=== PATIENT | female | born 1955 | race Caucasian/White ===

== ENCOUNTER → 2018-04-17 11:05 | Outpatient (CLI) | payer OTHER, SELFPAY ==
--- NOTE | 2018-04-17 | DI.MG.S_ITS ---
BILATERAL DIGITAL SCREENING MAMMOGRAM 3D/2D WITH CAD: 04/17/2018 CLINICAL: Routine screening. Comparison is made to exams dated: 08/02/2015 mammogram, 09/01/2013 mammogram, and 08/24/2012 mammogram - [facility]. The tissue of both breasts is heterogeneously dense. This may lower the sensitivity of mammography. Current study was also evaluated with a Computer Aided Detection (CAD) system. There is an oval equal density asymmetry with a circumscribed margin in the left breast posterior depth superior region seen on the mediolateral oblique view only. No other significant masses, calcifications, or other findings are seen in either breast. IMPRESSION: INCOMPLETE: NEEDS ADDITIONAL IMAGING EVALUATION The oval equal density asymmetry in the left breast is indeterminate. Mediolateral, exaggerated CC, and spot compression views as well as additional views with possible ultrasound are recommended. This exam was interpreted at Station ID: [id number]. NOTE: For mammograms, a report in lay terms will be sent to the patient. Approximately 15% of breast malignancies will not be visualized mammographically. In the management of a palpable breast mass, a negative mammogram must not discourage biopsy of a clinically suspicious lesion. Electronically Signed By: Miller valdez/maddie:04/17/2018 15:28:59 copy to: GRANT PEDROZA letter sent: Additional Imaging Needed ACR BI-RADS Category 0: Incomplete 3340F
== END ==
PROVIDERS: PCP Family Medicine; Visit Provider Family Medicine
DX: Z12.31 Encounter for screening mammogram for malignant neoplasm of breast (principal)
CPT/HCPCS: 77063; 77067

== ENCOUNTER → 2018-05-04 08:50 | Outpatient (CLI) | payer OTHER, SELFPAY ==
--- NOTE | 2018-05-04 | DI.US.S_ITS ---
LIMITED ULTRASOUND OF LEFT BREAST: 05/04/2018 CLINICAL: Patient returns today to evaluate a focal asymmetry in the left breast. Comparison is made to exams dated: 05/04/2018 mammogram, 04/17/2018 mammogram - [facility], 08/02/2015 mammogram, 09/01/2013 mammogram, and 08/24/2012 mammogram - [facility]. Color flow and real-time ultrasound of the left breast outer aspect were performed on the areas of interest. There is a benign 0.8 cm x 0.3 cm x 0.6 cm oval normal lymph node with a circumscribed margin in the left breast at 3 o'clock. This oval normal lymph node is of mixed echogenicity with fatty hilum. This correlates with mammography findings. Color flow imaging demonstrates that there is vascularity present. This appears similar on the CC view of the mammogram compared to the prior study of 09/01/13. IMPRESSION: BENIGN There is no sonographic evidence of malignancy. The 0.8 cm x 0.3 cm x 0.6 cm oval normal lymph node in the left breast is consistent with a lymph node and is benign. A 1 year screening mammogram is recommended. This exam was interpreted at Station ID: [id number]. Electronically Signed By: Miller valdez/:05/04/2018 10:07:42 copy to: GRANT PEDROZA letter sent: Normal Exam Ultrasound BI-RADS: 2 Benign
--- NOTE | 2018-05-04 | DI.MG.S_ITS ---
UNILATERAL LEFT DIGITAL DIAGNOSTIC MAMMOGRAM 3D/2D WITH ADDITIONAL VIEWS: 05/04/2018 CLINICAL: Additional evaluation requested from prior study. Comparison is made to exams dated: 04/17/2018 mammogram - [facility], 08/02/2015 mammogram, and 09/01/2013 mammogram - [facility]. The tissue of left breast is heterogeneously dense. This may lower the sensitivity of mammography. There is 0.9 cm oval equal density focal asymmetry with a circumscribed margin in the left breast at 3 o'clock posterior depth. No other significant masses or calcifications are seen in the breast. IMPRESSION: INCOMPLETE: NEEDS ADDITIONAL IMAGING EVALUATION The 0.9 cm oval equal density focal asymmetry in the left breast is indeterminate. An ultrasound is recommended. This exam was interpreted at Station ID: [id number]. NOTE: For mammograms, a report in lay terms will be sent to the patient. Approximately 15% of breast malignancies will not be visualized mammographically. In the management of a palpable breast mass, a negative mammogram must not discourage biopsy of a clinically suspicious lesion. Electronically Signed By: Miller valdez/maddie:05/04/2018 09:54:18 copy to: GRANT PEDROZA letter sent: Need Ultrasound ACR BI-RADS Category 0: Incomplete [id number]
== END ==
PROVIDERS: PCP Family Medicine; Visit Provider Family Medicine
DX: R92.8 Other abnormal and inconclusive findings on diagnostic imaging of breast (principal)
CPT/HCPCS: 76642; 77065; G0279

== ENCOUNTER → 2018-11-17 09:28 | Outpatient (CLI) | payer OTHER, SELFPAY ==
[2018-11-17 10:30] LABS: Add Manual Diff / Slide Review NO; Basophils Absolute Auto 0 /uL (0-100); Basophils Percent Auto 0.9 % (0-2); Eosinophils Absolute Auto 100 /uL (0-450); Eosinophils Percent Auto 2.8 % (2-4); Hematocrit 41.1 % (36-46); Hemoglobin 14.2 g/dL (12.0-16.0); Lymphocytes Absolute Auto 1500 /uL (1100-4500); Lymphocytes Percent Auto 39.5 % (25-40); Mean Corpuscular HGB Conc 34.6 % (30-36); Mean Corpuscular Hemoglobin 31.2 PG (26-34); Mean Corpuscular Volume 90.2 fL (80-100); Monocytes Absolute Auto 400 /uL (0-900); Monocytes Percent Auto 9.7 % (3-14); Neutrophils Absolute Auto 1800 /uL (1500-7000); Neutrophils Percent Auto 47.1 % (50-75); Platelet Count 268 X10^3/uL (150-400); Red Blood Cell Count 4.56 X10^6/uL (4.0-5.2); Red Cell Distribution Width 13.5 % (11.6-14.8); White Blood Cell Count 3.8 X10^3/uL (4.5-11.0)
[2018-11-17 11:06] LABS: Alanine Aminotransferase 12 IU/L (9-52); Albumin 4.2 g/dL (3.5-5.0); Albumin Globulin Ratio 1.5 (1.0-2.8); Alkaline Phosphatase 64 U/L (38-126); Aspartate Aminotransferase 28 IU/L (14-36); BUN Creatinine Ratio 22.2 (6-22); Bilirubin Total 0.9 mg/dL (0.2-1.3); Blood Urea Nitrogen 20 mg/dL (7-17); Calcium 9.4 mg/dL (8.4-10.2); Carbon Dioxide 29 mmol/L (22-32); Chloride 105 mmol/L (98-107); Cholesterol 216 mg/dL (140-199); Estimated Glomerular Filt Rate > 60.0 mL/min (>60); Globulin 2.8 g/dL (1.7-4.1); Glucose 93 mg/dL (80-110); HDL Cholesterol 76 mg/dL (40-60); HEMOLYSIS < 15 (0-50); LDL Cholesterol Calculated 129 mg/dL (<100); Sodium 141 mmol/L (137-145); Triglycerides 53 mg/dL (35-150)
[2018-11-17 11:25] LABS: Free T3, Triiodothyronine Free 3.55 pg/mL (2.77-5.27); Free T4, Direct Thyroxine 0.89 ng/dL (0.78-2.19)
[2018-11-17 11:38] LABS: Thyroid Stimulating Hormone 2.23 uIU/mL (0.47-4.68)
[2018-11-17 11:40] LABS: Ferritin 85.6 ng/mL (11.1-264)
== END ==
PROVIDERS: Visit Provider Naturopath
DX: Z00.00 Encounter for general adult medical examination without abnormal findings (principal); D50.9 Iron deficiency anemia, unspecified; R53.83 Other fatigue
CPT/HCPCS: 36415; 80053; 80061; 82728; 84439; 84443; 84481; 85025

== ENCOUNTER → 2019-04-08 08:45 | Outpatient (CLI) | payer OTHER, SELFPAY ==
--- NOTE | 2019-04-08 | DI.RAD.S_ITS ---
PROCEDURE: XR CHEST 2V INDICATIONS: COUGH TECHNIQUE: 2 views of the chest were acquired. COMPARISON: None. FINDINGS: Surgical changes and devices: Left clavicle hardware is seen. Lungs and pleura: Lungs are clear. No pleural effusions or pneumothorax. Mediastinum: Mediastinal contours are normal. Heart size is normal. Bones and chest wall: No suspicious bony abnormalities. Age-appropriate bony degenerative changes are seen. Soft tissues appear unremarkable. IMPRESSION: No focal infiltrates are seen. Dictated by: Jeevan Muñoz M.D. on 04/08/2019 at 9:29 Approved by: Jeevan Muñoz M.D. on 04/08/2019 at 9:29
== END ==
PROVIDERS: Referring Provider Student in an Organized Health Care Education/Training Program; Visit Provider Student in an Organized Health Care Education/Training Program
DX: R05 Cough (principal)
CPT/HCPCS: 71046

== ENCOUNTER 2019-11-04 10:35 | Emergency (ER) | payer OTHER, SELFPAY ==
[2019-11-04 10:38] VITALS: BP 110/62; PULSE 49; RESP 13; TEMP 36.7; O2SAT 100; BMI 21.4
--- NOTE | 2019-11-04 10:41 | DI.RAD.S_ITS ---
PROCEDURE: XR TIBIA FUBULA RT 2V INDICATIONS: fell onto right leg TECHNIQUE: 2 views of the tibia and fibula were acquired. COMPARISON: [facility], CR, XR ANKLE RT MIN 3V, 11/04/2019, 10:32. FINDINGS: Bones: Spiral fracture of the proximal fibula. There is minimal displacement. Near anatomic alignment. No dislocations. No suspicious bony lesions. Soft tissues: No suspicious soft tissue calcifications or masses. IMPRESSION: Proximal fibula fracture with minimal displacement. Dictated by: Man Perkins M.D. on 11/04/2019 at 10:00 Approved by: Man Perkins M.D. on 11/04/2019 at 10:02
--- NOTE | 2019-11-04 10:41 | DI.RAD.S_ITS ---
PROCEDURE: XR ANKLE RT MIN 3V INDICATIONS: fell onto right leg TECHNIQUE: 3 views of the ankle were acquired. COMPARISON: [facility], CR, XR TIBIA FIBULA RT 2V, 11/04/2019, 10:32. FINDINGS: Bones: Irregularity at the posterior malleolus seen only on the lateral projection. This is not definitely seen on the tibia fibula radiographs. No dislocations. Ankle mortise is normally aligned. No suspicious bony lesions. Soft tissues: No swelling at the malleoli appreciated. No tibiotalar joint effusion. Achilles tendon appears normal. IMPRESSION: Possible posterior malleolus fracture seen on one view. This may be artifactual, especially if there is no twisting mechanism of the ankle. Recommend correlation for point tenderness. Follow-up radiographs in 10-14 days may be helpful. Dictated by: Man Perkins M.D. on 11/04/2019 at 10:02 Approved by: Man Perkins M.D. on 11/04/2019 at 10:06
--- NOTE | 2019-11-04 11:28 | DI.CT.S_ITS ---
PROCEDURE: CT LE RT WO CON INDICATIONS: Knee to ankle, medial malleolus TECHNIQUE: Noncontrast 3-mm axial sections acquired from the distal tibial shaft to the talar dome, with coronal and sagittal reformats.. COMPARISON: [facility], CR, XR ANKLE RT MIN 3V, 11/04/2019, 10:32. [facility], CR, XR TIBIA FIBULA RT 2V, 11/04/2019, 10:32. FINDINGS: Image quality: Excellent. Bones: There is a mildly displaced spiral fracture involving the proximal fibular diaphysis. Proximal tibia-fibular articulation appears normal. There is a dystrophic calcification at the level just proximal to the syndesmosis without a discrete donor site. Fibula is otherwise intact. There is a nondisplaced, coronal oriented posterior malleolar fracture. A medial malleolar fracture is not seen. The ankle mortise is intact. There is mild spurring along the medial talus. There is a multipartite os navicular, normal variant. Soft tissues: Tendons and musculature appear normal. No significant joint effusions. IMPRESSION: 1. High spiral fibular fracture of the proximal diaphysis suggesting Maisonneuve type fracture. 2. Nondisplaced posterior malleolar fracture. 3. No visible medial malleolar fracture. Osseous contusion may be present. 4. Intact ankle mortise. Dictated by: Gracia Oseguera M.D. on 11/04/2019 at 12:16 Approved by: Gracia Oseguera M.D. on 11/04/2019 at 12:26
[2019-11-04] MEDS: IBUPROFEN 400 MG TABLET PO (12:04)
--- NOTE | 2019-11-04 12:10 | ED_ITS ---
HPI - Extremity Injury (Lower) <PEREZ Jack - Last Filed: 11/04/19 13:58> General Chief Complaint: Extremity Injury, Lower Stated Complaint: fell and injured right leg Time Seen by Provider: 11/04/19 10:58 Source: patient Mode of arrival: Wheelchair Limitations: no limitations History of Present Illness HPI Narrative: 64yo female presents to the ED for right leg pain. She states a few hours ago she slipped on some wet rocks and fell into a sitting position with her right leg cross behind her. Patient states she fell on to her right leg. She reports pain to her right upper lateral side of her leg and her medial ankle. Patient states pain is worse when she tries to ambulate and worse with movement. Patient denies any major medical issues, is not taking any blood thinners. She denies any previous injury to this leg. Patient denies any fevers, chills, nausea, vomiting, diarrhea, chest pain, shortness of breath, or any other concerns. Related Data Allergies Allergy/AdvReac Type Severity Reaction Status Date / Time Penicillins Allergy Verified 11/04/19 10:42 tetracycline Allergy Verified 11/04/19 10:42 Review of Systems <PEREZ Jack - Last Filed: 11/04/19 13:58> Review of Systems Narrative: REVIEW OF SYSTEMS: GENERAL: Denies fever or chills. HENT: No head trauma. CARDIOVASCULAR: No chest pain or syncope. RESPIRATORY: No shortness of breath or cough. GASTROINTESTINAL: No nausea, vomiting, diarrhea, or constipation. . MUSCULOSKELETAL: Complains of R leg pain, see HPI. INTEGUMENTARY: No rash. NEURO: No numbness, tingling. PSYCH: No behavior or mood changes. Patient History <PEREZ Jack - Last Filed: 11/04/19 13:58> Medical History No significant medical problems (Acute) Social History Smoking Status: Unknown if ever smoked Smoking Status: Unknown if ever smoked alcohol intake frequency: holidays/special occasions only Substance Use Type: does not use Exam <PEREZ Jack - Last Filed: 11/04/19 13:58> Initial Vital Signs Initial Vital Signs: Vital Signs Temperature 98.0 F 11/04/19 10:38 Pulse Rate 49 L 11/04/19 10:38 Respiratory Rate 13 11/04/19 10:38 Blood Pressure 110/62 11/04/19 10:38 Pulse Oximetry 100 11/04/19 10:38 PHYSICAL EXAMINATION: GENERAL: Well groomed, alert, and cooperative. Answers questions promptly and appropriately. Vital signs noted. HENT: Normocephalic, atraumatic. EYES: Symmetrical, sclera white, no periorbital swelling. CARDIOVASCULAR: Regular rate. RESPIRATORY: Normal respiratory rate, trachea midline, airway patent. No stridor, nasal flaring or accessory muscle use. MUSCULOSKELETAL: Tenderness to right lateral proximal tibia below knee. Tenderness to right medial malleolus with palpation. No pain to palpation of knee or foot. Small amount of swelling noted to medial malleolus. Decreased range of motion of ankle due to pain. CMS intact, pedal pulses 2+ and equal bilaterally. Patient walks with limp due to pain. Equal tone and mass bilaterally. EXTREMITIES: CMS intact. SKIN: Warm, dry, soft, appropriate color for ethnicity. No lesions, rashes, or wounds. NEURO: Alert and Oriented X 3. No sensory deficits. PSYCH: Appropriate affect and mood. <Mitesh Lambert MD - Last Filed: 11/04/19 18:00> Initial Vital Signs Initial Vital Signs: Vital Signs Temperature 98.0 F 11/04/19 10:38 Pulse Rate 49 L 11/04/19 10:38 Respiratory Rate 13 11/04/19 10:38 Blood Pressure 110/62 11/04/19 10:38 Pulse Oximetry 100 11/04/19 10:38 Course <PEREZ Jack - Last Filed: 11/04/19 13:58> Course Course Narrative: Patient given ibuprofen prior to splinting. CT ordered per request of Ortho. Orders Ordered: ED Orders 11/04/19 10:41 XR ankle RT min 3V Stat XR tibia fibula RT 2V Stat 11/04/19 11:28 CT LE RT wo con Stat Discontinued Medications Ibuprofen (Advil) 400 mg PO NOW ONE Stop: 11/04/19 11:29 Last Admin: 11/04/19 12:04 Dose: 400 mg Documented by: KBROTEM Consultations Consultation #1: [id number]: I spoke with Dr. Rodriguez from ortho who suggested CT of LE, short leg splint, and follow-up in 1 week. Discussed Maisonneuve fracture pattern. Vital Signs Vital signs: Vital Signs - 8 hr 11/04/19 10:38 11/04/19 12:23 Temperature 98.0 F Pulse Rate 49 L 52 L Respiratory Rate 13 16 Blood Pressure 110/62 109/67 Pulse Oximetry 100 97 <Mitesh Lambert MD - Last Filed: 11/04/19 18:00> Orders Ordered: ED Orders 11/04/19 10:41 XR ankle RT min 3V Stat XR tibia fibula RT 2V Stat 11/04/19 11:28 CT LE RT wo con Stat Discontinued Medications Ibuprofen (Advil) 400 mg PO NOW ONE Stop: 11/04/19 11:29 Last Admin: 11/04/19 12:04 Dose: 400 mg Documented by: ISRA Vital Signs Vital signs: Vital Signs - 8 hr 11/04/19 10:38 11/04/19 12:23 Temperature 98.0 F Pulse Rate 49 L 52 L Respiratory Rate 13 16 Blood Pressure 110/62 109/67 Pulse Oximetry 100 97 MDM - Extremity Injury (Lower) <PEREZ Jack - Last Filed: 11/04/19 13:58> Medical Records Attestation: I reviewed the patient's medical records. Lab Data Attestation: I reviewed the patient's lab results. Imaging Data Extremity x-ray #1: Radiologist's Impression: [address] [address] XRay Report Signed Patient: Court Rai GMR#: [id number] : [id number]:[id number] Age/Sex: 64 / FDate of Service: 11/04/19 Loc: ED Accession Number: [id number] Procedure: XR ankle RT min 3V Ordering Provider: Mitesh Lambert MD PROCEDURE: XR ANKLE RT MIN 3V INDICATIONS: fell onto right leg TECHNIQUE: 3 views of the ankle were acquired. COMPARISON: [facility], , XR TIBIA FIBULA RT 2V, 11/04/2019, 10:32. FINDINGS: Bones: Irregularity at the posterior malleolus seen only on the lateral projection. This is not definitely seen on the tibia fibula radiographs. No dislocations. Ankle mortise is normally aligned. No suspicious bony lesions. Soft tissues: No swelling at the malleoli appreciated. No tibiotalar joint effusion. Achilles tendon appears normal. IMPRESSION: Possible posterior malleolus fracture seen on one view. This may be artifactual, especially if there is no twisting mechanism of the ankle. Recommend correlation for point tenderness. Follow-up radiographs in 10-14 days may be helpful. Dictated by: Man Perkins M.D. on 11/04/2019 at 10:02 Approved by: Man Pekrins M.D. on 11/04/2019 at 10:06 Extremity x-ray #2: Radiologist's Impression: [address] [address] XRay Report Signed Patient: Court Rai R#: [id number] : [id number]:[id number] Age/Sex: 64 / FDate of Service: 11/04/19 Loc: ED Accession Number: [id number] Procedure: XR tibia fibula RT 2V Ordering Provider: Mitesh Lambert MD PROCEDURE: XR TIBIA FUBULA RT 2V INDICATIONS: fell onto right leg TECHNIQUE: 2 views of the tibia and fibula were acquired. COMPARISON: [facility], [place], XR ANKLE RT MIN 3V, 11/04/2019, 10:32. FINDINGS: Bones: Spiral fracture of the proximal fibula. There is minimal displacement. Near anatomic alignment. No dislocations. No suspicious bony lesions. Soft tissues: No suspicious soft tissue calcifications or masses. IMPRESSION: Proximal fibula fracture with minimal displacement. Dictated by: Man Perkins M.D. on 11/04/2019 at 10:00 Approved by: Man Perkins M.D. on 11/04/2019 at 10:02 CT LE: Radiologist's Impression: [address] [address] [address] Scan Report Signed Patient: FrediCourt R#: [id number] : [id number]:[id number] Age/Sex: 64 / FDate of Service: 11/04/19 Loc: ED Accession Number: [id number] Procedure: CT LE RT wo con Ordering Provider: Anabel Fam PROCEDURE: CT LE RT WO CON INDICATIONS: Knee to ankle, medial malleolus TECHNIQUE: Noncontrast 3-mm axial sections acquired from the distal tibial shaft to the talar dome, with coronal and sagittal reformats.. COMPARISON: [facility], CR, XR ANKLE RT MIN 3V, 11/04/2019, 10:32. [facility], CR, XR TIBIA FIBULA RT 2V, 11/04/2019, 10:32. FINDINGS: Image quality: Excellent. Bones: There is a mildly displaced spiral fracture involving the proximal fibular diaphysis. Proximal tibia-fibular articulation appears normal. There is a dystrophic calcification at the level just proximal to the syndesmosis without a discrete donor site. Fibula is otherwise intact. There is a nondisplaced, coronal oriented posterior malleolar fracture. A medial malleolar fracture is not seen. The ankle mortise is intact. There is mild spurring along the medial talus. There is a multipartite os navicular, normal variant. Soft tissues: Tendons and musculature appear normal. No significant joint effusions. IMPRESSION: 1. High spiral fibular fracture of the proximal diaphysis suggesting Maisonneuve type fracture. 2. Nondisplaced posterior malleolar fracture. 3. No visible medial malleolar fracture. Osseous contusion may be present. 4. Intact ankle mortise. Dictated by: Gracia Oseguera M.D. on 11/04/2019 at 12:16 Approved by: Gracia Oseguera M.D. on 11/04/2019 at 12:26 MDM Narrative Medical decision making narrative: History and examination reveals multiple frac tures to right fibula that present in a maisonneuve pattern. Ortho was consulted, CT was ordered for further evaluation. Patient was placed in a splint, crutches were given. No concern for vascular compromise or compartment syndrome as compartments were soft, pulses, CMS intact. Return precautions given for new or worsening symptoms. Patient was encouraged to follow up with Ortho in 1 week. Patient agreed to plan of care verbalized understanding. Discharge Plan Departure Patient Disposition: Home Clinical Impression: Closed Maisonneuve fracture Qualifiers: Encounter type: initial encounter Fracture alignment: nondisplaced Laterality: right Qualified Code(s): S82.864A - Nondisplaced Maisonneuve's fracture of right leg, initial encounter for closed fracture Discharge Date/Time: 11/04/19 12:55 Instructions: DI for Ankle Fracture Activity Restrictions/Additional Instructions: Thank you for entrusting me with your care today. As discussed, your x-ray shows a fracture of your ankle and your leg. Your leg was placed in a splint, do not put any weight on this, use crutches to help with getting around. Take Tylenol and ibuprofen as needed for pain. Elevate the leg as much as possible. Please call the orthopedic listed below today to schedule an appointment in approximately 1 week for evaluation. Return emergency department for any new or worsening symptoms such as severe pain, high fevers, uncontrollable vomiting, or other concerns. Referrals: Kristin Rodriguez MD [Physician] - (Maisonneuve fracture) Katherin Arndt MD [Primary Care Provider] - <Mitesh Lambert MD - Last Filed: 11/04/19 18:00> Cosign ED Attending Cosignature Attestation: I was immediately available in the department for consultation. This documentation has been reviewed and I agree with assessment and plan. Supervised by Mitesh Lambert MD
[2019-11-04 12:23] VITALS: BP 109/67; PULSE 52; RESP 16; O2SAT 97
== END 2019-11-04 12:55 | disposition home or self-care (01) ==
PROVIDERS: Emergency Provider Nurse Practitioner; PCP Student in an Organized Health Care Education/Training Program
DX: S82.864A Nondisplaced Maisonneuve's fracture of right leg, initial encounter for closed fracture (principal); W01.198A Fall on same level from slipping, tripping and stumbling with subsequent striking against other object, initial encounter
CPT/HCPCS: 29515; 73590; 73610; 73700; 99284

== ENCOUNTER → 2019-11-09 15:16 | Outpatient (CLI) | payer OTHER, SELFPAY ==
[2019-11-10 07:59] LABS: COVID19 Sendout Not Detected (Not Detect)
== END ==
PROVIDERS: PCP Student in an Organized Health Care Education/Training Program; Visit Provider Nurse Practitioner
DX: Z11.59 Encounter for screening for other viral diseases (principal)
CPT/HCPCS: 87635

== ENCOUNTER 2019-11-12 10:06 | Day surgery (SDC) | payer OTHER, SELFPAY ==
[2019-11-12] VITALS (9 sets, daily range): BP systolic 98–122; BP diastolic 7–70; PULSE 51–69; RESP 13–21; TEMP 36.7–37.7; O2SAT 99–100; BMI 21.8
--- NOTE | 2019-11-12 | DI.RAD.S_ITS ---
PROCEDURE: XR FOOT RT MIN 3V INDICATIONS: orif posterior malleolus and syndesmosis disruption R TECHNIQUE: 5 views of the foot were acquired. COMPARISON: None. FINDINGS: Bones: No previously on identified fractures or dislocations. No suspicious bony lesions. Soft tissues: No tibiotalar joint effusion. Achilles tendon appears normal. IMPRESSION: Normal postoperative alignment. Dictated by: Kerwin Bella M.D. on 11/12/2019 at 14:12 Approved by: Kerwin Bella M.D. on 11/12/2019 at 14:12
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
--- NOTE | 2019-11-12 10:40 | PM.PREOP ---
Pre-operative Note COVID-19 COVID-19 status: Negative Result date/Date tested (Pos, Neg/Pending): 11/09/19 Interval Note History & Physical reviewed/Exam performed by Physician: Yes Changes to H&P: No
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
[2019-11-12] MEDS: LACTATED RINGERS 1,000 ML 42 ML IV ×2 (10:50→13:09)
--- NOTE | 2019-11-12 11:24 | SUR.OPER ---
Lateral on OR bed with villafuerte bag, head on pillow, gel axillary roll in place, bottom leg bent with gel pad under knee to foot, upper leg straight and supported with pillows. Upper arm supported by pillows and secured over bottom arm to padded arm board. Safety belt at hip, tape over blanket lower legs.
[2019-11-12] MEDS: CLINDAMYCIN 900 MG/50 ML PIGGYBACK 50 MG IV (11:44)
[2019-11-12] MEDS: BUPIVACAINE 0.25% W/ EPI 30 ML VIAL INJ (12:38)
--- NOTE | 2019-11-12 14:17 | SUR.PHASEII ---
Patient advised that she would be discharged from recovery when sensation is present in both legs. 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 Call light within reach. Advised patient to read over discharge instructions while waiting.
--- NOTE | 2019-11-12 14:55 | SUR.PHASEII ---
1455 Pt reports that she is anxious to go home, that buttocks are completely numb, unable to move toes. She can rotate her right leg medially but not laterally. She is limiting PO fluid intake presently, denies pain, no nausea
--- NOTE | 2019-11-12 15:37 | SUR.PHASEII ---
Incont of urine, patient was unaware. Hygiene and linen change done
--- NOTE | 2019-11-12 16:15 | SUR.PHASEII ---
Patient unable to empty bladder after being assisted onto the bedpan. Less than 30 mls noted in bedpan and patient states that her bladder still feels full. Bladder scan reveals [address] Rodriguez. Orders received for temporary wilcox catheter insertion to drain bladder. Inserted 16 mohawk wilcox catheter using sterile technique on one attempt. Wilcox draining without difficulty. Will repeat bladder scan prior to removing wilcox catheter.
[2019-11-12] MEDS: KETOROLAC 30 MG/ML VIAL IV (16:34)
--- NOTE | 2019-11-12 17:08 | SUR.PHASEII ---
1650 Emptied wilcox catheter of 1000 mls of urine. Post bladder scan reveals 25 mls. Patient states that she feels much better. Instructed patient to return to ER if unable to void within a few hours. V/U. Patient able to bear weight on her non-surgical foot. Cap refill less than 3 seconds to operative side. Assisted patient with getting dress and escorted patient to vehicle via wheelchair. Home with in stable condition.
== END 2019-11-12 16:55 | disposition home or self-care (01) ==
PROVIDERS: PCP Student in an Organized Health Care Education/Training Program; Referring Provider Student in an Organized Health Care Education/Training Program; Visit Provider Orthopaedic Surgery Foot and Ankle Surgery
PROC: 0SSF04Z Reposition Right Ankle Joint with Internal Fixation Device, Open Approach (ICD-10-PCS; CPT 27769; principal; 2019-11-12 11:15)
DX: S82.861A Displaced Maisonneuve's fracture of right leg, initial encounter for closed fracture (principal); W01.0XXA Fall on same level from slipping, tripping and stumbling without subsequent striking against object, initial encounter; Y93.01 Activity, walking, marching and hiking
CPT/HCPCS: 27769; 27829; 73630; 76000; J1885; J2250; J3010

== ENCOUNTER → 2020-10-12 09:08 | Outpatient (CLI) | payer OTHER, SELFPAY ==
[2020-10-12 10:00] LABS: COVID19 -Nasal RAPID Negative (Negative)
== END ==
PROVIDERS: PCP Student in an Organized Health Care Education/Training Program; Referring Provider Internal Medicine; Visit Provider Internal Medicine
DX: Z20.822 Contact with and (suspected) exposure to COVID-19 (principal)
CPT/HCPCS: 87635; C9803

== ENCOUNTER → 2020-10-13 08:48 | Outpatient (CLI) | payer OTHER, SELFPAY ==
--- NOTE | 2020-10-18 11:08 | PM.PFT.1 ---
Pulmonary Function Test Referral & Results Date Patient Seen: 10/13/20 Requesting provider: Katherin Arndt Results: The spirometry demonstrates an FVC of 3.22 L which is 101% of predicted. The FEV1 was measured at 2.61 L which is 106% of predicted. The FEV1/FVC ratio was 81 which is 105% of predicted. Following the administration of bronchodilator there was a 26% improvement in FEF 25-75%. Lung volumes show an SVC of 3.24 L which is 108% of predicted. The diffusing capacity was measured at 22.70 which is 93% of predicted. The maximum voluntary ventilation was normal Interpretation: This study demonstrates normal pulmonary function
== END ==
PROVIDERS: PCP Student in an Organized Health Care Education/Training Program; Referring Provider Student in an Organized Health Care Education/Training Program; Visit Provider Student in an Organized Health Care Education/Training Program
DX: J45.20 Mild intermittent asthma, uncomplicated (principal)
CPT/HCPCS: 94060; 94726; 94729

== ENCOUNTER → 2020-11-08 14:02 | Outpatient (CLI) | payer OTHER, SELFPAY ==
--- NOTE | 2020-11-08 | DI.MG.S_ITS ---
BILATERAL DIGITAL SCREENING MAMMOGRAM 3D/2D WITH CAD: 11/08/2020 CLINICAL: Routine screening. Comparison is made to exams dated: 05/04/2018 mammogram, 04/17/2018 mammogram - [facility], and 08/02/2015 mammogram - [facility]. The tissue of both breasts is heterogeneously dense. This may lower the sensitivity of mammography. Current study was also evaluated with a Computer Aided Detection (CAD) system. There is a stable benign focal asymmetry in the left breast. There also are biopsy clips in the left breast. No significant masses, calcifications, or other findings are seen in either breast. There has been no significant interval change. IMPRESSION: BENIGN There is no mammographic evidence of malignancy. A 1 year screening mammogram is recommended. This exam was interpreted at Station ID: [id number]. NOTE: For mammograms, a report in lay terms will be sent to the patient. Approximately 15% of breast malignancies will not be visualized mammographically. In the management of a palpable breast mass, a negative mammogram must not discourage biopsy of a clinically suspicious lesion. Electronically Signed By: Godwin Pulido acr/penrad:11/08/2020 14:38:34 letter sent: Normal Exam ACR BI-RADS Category 2: Benign Finding(s) 3342F
--- NOTE | 2020-11-08 | DI.RAD.S_ITS ---
PROCEDURE: XR DEXA AXIAL SKELETON INDICATIONS: ROUTINE SCREENING COMPARISON: None. FINDINGS: This blank DEXA report has been sent in error by the PACS system. The correct and complete report will be forthcoming in 1-2 days. Thank you for your patience and understanding. Dictated by: Rita Mensah MD, PhD on 11/09/2020 at 8:36 Approved by: Rita Mensah MD, PhD on 11/09/2020 at 8:37
== END ==
PROVIDERS: PCP Student in an Organized Health Care Education/Training Program; Referring Provider Student in an Organized Health Care Education/Training Program; Visit Provider Student in an Organized Health Care Education/Training Program
DX: Z12.31 Encounter for screening mammogram for malignant neoplasm of breast (principal); M85.852 Other specified disorders of bone density and structure, left thigh; Z78.0 Asymptomatic menopausal state; Z82.62 Family history of osteoporosis
CPT/HCPCS: 77063; 77067; 77080

== ENCOUNTER → 2021-10-19 08:34 | Outpatient (CLI) | payer OTHER, SELFPAY ==
--- NOTE | 2021-10-19 | DI.RAD.S_ITS ---
PROCEDURE: XR HIP W PEL IF DONE RT 2V INDICATIONS: RIGHT HIP PAIN TECHNIQUE: AP pelvis with lateral view(s) of the right hip(s). COMPARISON: None. FINDINGS: Bones: No fractures or dislocations. Pelvic ring appears intact. No suspicious bony lesions. Soft tissues: The visualized bowel gas pattern is normal. No suspicious soft tissue calcifications. IMPRESSION: Intact pelvis and right hip. Dictated by: Gracia Oseguera M.D. on 10/19/2021 at 11:04 Approved by: Gracia Oseguera M.D. on 10/19/2021 at 11:05
== END ==
PROVIDERS: PCP Family Medicine; Referring Provider Family Medicine; Visit Provider Family Medicine
DX: M25.551 Pain in right hip (principal)
CPT/HCPCS: 73502

== ENCOUNTER → 2021-12-10 09:16 | Outpatient (CLI) | payer OTHER, SELFPAY ==
[2021-12-10 12:19] LABS: COVID19 -Nasal RAPID Negative (Negative)
== END ==
PROVIDERS: PCP Family Medicine; Visit Provider Surgery
DX: Z20.822 Contact with and (suspected) exposure to COVID-19 (principal); Z01.812 Encounter for preprocedural laboratory examination
CPT/HCPCS: 87635; C9803

== ENCOUNTER 2021-12-11 06:56 | Day surgery (SDC) | payer OTHER, SELFPAY ==
[2021-12-11 07:27] VITALS: BP 111/74; PULSE 63; RESP 16; TEMP 36.2; O2SAT 99; BMI 20.5
--- NOTE | 2021-12-11 07:50 | PM.HP.1 ---
History of Present Illness History of Present Illness Date Patient Seen: 12/11/21 Time Patient Seen: 07:50 Chief complaint: SCREENING COLONOSCOPY Narrative: The patient presents for colorectal screening. She has family history of colon cancer in a sibling. Last colonoscopy 6 years ago and normal. She requests that today's endoscopy is performed without sedation.. No new gastrointestinal symptoms. Patient History Medical History (Updated 11/19/19 @ 00:00 by ) No significant medical problems Family & Social History Social History: household members spouse Tobacco & Substance use: Smoking Status Former smoker alcohol intake never alcohol intake frequency holiday/special occasion Substance Use Type does not use Meds Home Medications and Allergies Home Medications Medication Instructions Recorded Confirmed Type estradiol 0.01% (0.1 mg/gram) See Rx Instructions .Route .COMPLEX 11/12/19 11/12/19 History vaginal cream estradiol 10 mcg vaginal tablet 1 mcg vaginal WEEKLY 11/12/19 11/12/19 History Allergies Allergy/AdvReac Type Severity Reaction Status Date / Time Penicillins Allergy Flushing Verified 11/12/19 10:17 tetracycline Allergy Rash Verified 11/12/19 10:17 Exam Vital Signs (past 8 hours): - 12/11/21 07:27 Temperature 97.2 F L Pulse Rate 63 Respiratory Rate 16 Blood Pressure 111/74 Pulse Oximetry 99 Oxygen Delivery Method Room Air Oxygen Delivery Method Room Air Narrative Exam Narrative: General adult woman alert oriented no acute distress Chest nonlabored respiration Abdomen soft nontender nondistended Assessment & Plan Assessment & Plan narrative: The patient requires colorectal screening and colonoscopy is recommended. Technical details were discussed. Risks, benefits, alternatives explained. Risks including but not limited to myocardial infarction, aspiration, bleeding, pain, missed lesion, incomplete examination, need for further radiographic studies, colonic perforation, and need for major abdominal surgery were discussed. All questions were answered to their satisfaction, and they are in agreement with this plan. Time Spent With Patient Critical Care time: I spent a total of [] minutes of critical care time on this patient's care today; this time is exclusive of procedural time.
--- NOTE | 2021-12-11 08:17 | SUR.OPER ---
no sedation per pt request
--- NOTE | 2021-12-11 08:26 | PM.OP.COLON ---
Operative Date/Time/Diagnoses Date of procedure: 12/11/21 Time of procedure: 08:26 Pre-op diagnosis: family of colon cancer Post-op diagnosis: same Procedure & Clinicians Study performed: colonoscopy Same procedure as scheduled: Yes Indications: screening Surgeon: Ronald Goldberg Procedure Notes Procedure in detail: The history and physical was performed/updated and the patient is ASA class is 1. The procedure was discussed in detail with the patient. Potential risks complications including infection, bleeding, missed diagnosis, perforation, need for surgery, and were explained. Their questions were answered and informed consent was obtained. Patient was brought to the procedure room and placed standard monitoring equipment. The patient's vital signs were monitored continuously throughout the entire procedure. Prior to starting time-out was performed. The patient was placed in the left lateral recumbent position. Examination began with a thorough inspection of the perianal area there was no evidence of fissures, fistulae, external hemorrhoids or cutaneous malignancy. The colonoscopy scope was then placed into the anal canal and was advanced to the cecum, which was identified by the ileocecal valve, the appendiceal orifice and the confluence of the taenia. The scope was then slowly withdrawn examining colon thoroughly in all directions, irrigating it of any residual stool. FINDINGS 1. No masses or polyps 2. Normal healthy colon The patient tolerated the procedure well. They will be discharged once criteria are met. The prep was of good/excellent quality. The withdrawl time was 7 minutes. The sedation time was 0 minutes. Impression: Normal colonoscopy Post-procedure Plan for aftercare: Guidelines would suggest colonoscopy in 5 years. However given she has 3 previously normal colonoscopy, her strong preference is to perform the next in 7 years which is not unreasonable. Disposition: same day surgery
[2021-12-11 08:35] VITALS: BP 101/60; PULSE 57; RESP 14; TEMP 36.4; O2SAT 100
== END 2021-12-11 08:46 | disposition home or self-care (01) ==
PROVIDERS: PCP Family Medicine; Referring Provider Surgery; Visit Provider Surgery
PROC: 0DJD8ZZ Inspection of Lower Intestinal Tract, Via Natural or Artificial Opening Endoscopic (ICD-10-PCS; CPT 45378; principal; 2021-12-11 07:45)
DX: Z12.11 Encounter for screening for malignant neoplasm of colon (principal); Z80.0 Family history of malignant neoplasm of digestive organs
CPT/HCPCS: 45378

== ENCOUNTER → 2021-12-13 08:41 | Outpatient (CLI) | payer OTHER, SELFPAY ==
--- NOTE | 2021-12-13 | DI.RAD.S_ITS ---
PROCEDURE: FL HIP INJECTION MR/CT RT INDICATIONS: RIGHT HIP PAIN TECHNIQUE: The indications, alternatives, benefits, risks, and complications of the procedure were explained to the patient. Written informed consent was obtained and placed in the chart. The hip was examined fluoroscopically with the legs fixed in slight internal rotation, and a site for needle placement chosen for entry into the hip joint from an anterior approach. Care was taken to locate the common femoral artery and vein beforehand. The skin was prepped and draped in a sterile fashion, and 1% Lidocaine infiltrated from skin down to joint capsule. A spinal needle was inserted into the joint, and a small amount of iodinated contrast media injected to confirm intra-articular placement of the needle tip. This was followed by approximately 10 mL dilute solution of a gadolinium containing MR contrast agent. The needle was removed and a dressing was applied. The patient was given postprocedural instructions and sent to the MR suite for imaging. COMPARISON: [facility], , MR HIP RT W CON, 12/13/2021, 9:36. FINDINGS: A single fluoroscopic spot image demonstrates intra-articular location of injected iodinated contrast. IMPRESSION: Successful fluoroscopically guided administration of dilute Gadolinium solution into the hip joint for right MR arthrogram. Dictated by: Man Perkins M.D. on 12/13/2021 at 11:44 Approved by: Man Perkins M.D. on 12/13/2021 at 11:45
--- NOTE | 2021-12-13 | DI.MRI.S_ITS ---
PROCEDURE: MR HIP RT W CON INDICATIONS: RIGHT HIP PAIN TECHNIQUE: After the administration of 10 mL of dilute intra-articular Gadolinium contrast, coronal STIR of the bony pelvis; coronal and oblique axial T1 spin echo with fat saturation, axial T2 fast spin echo with fat saturation, sagittal T1 spin echo with and without fat saturation of the involved hip. COMPARISON: None. FINDINGS: Image quality: Excellent. Bones and joints: Asymmetric mild to moderate right hip joint osteoarthritic changes are seen with superior joint space narrowing and subchondral sclerosis. Small lateral marginal osteophyte formation is seen. Prominence of superior anterior right femoral head neck junction is noted with subcortical cystic area which can be seen associated with CAM type femoral acetabular impingement. No intraosseous lesions or fractures. No avascular necrosis of the femoral head. The visualized lower lumbar spine appears normally aligned. The ligamental, neck, and labral plicae appear normal where visualized. Tendons and ligaments: Distal right gluteus medius and minimus tendinosis is seen at their insertions on greater trochanter, without associated muscle atrophy. The nearby proximal iliotibial band also appears intact. The iliopsoas tendon appears intact, without adjacent bursal fluid collections or evidence for impingement syndrome. The origin of the hamstring tendon is intact at the ischial tuberosity, as well as the associated sacrotuberous ligament. The straight and reflected heads of the rectus femoris muscle origin appear intact, as well as the conjoint tendon. The ligamentum teres appears intact where visualized. Labrum and cartilage: Thinning of articulating cartilages in superior right femoral head is seen. Signal abnormality, contour irregularity and contrast extension in superior anterior right hip labrum is noted at approximately 1 to 2 o'clock position suggestive of superior anterior labral tear. No paralabral cysts. The alpha angle of the femur is within normal limits at less than 55 degrees. Soft tissues: Visualized muscles demonstrate normal bulk and internal signal. Quadratus femoris muscle demonstrates no internal edema to suggest ischiofemoral impingement. The proximal sciatic neurovascular bundle appears normal adjacent to the hamstring tendons. No free pelvic fluid. Bladder wall thickness is normal. Genitourinary structures and bowel loops appear normal where visualized. IMPRESSION: 1. Asymmetric mild to moderate right hip joint osteoarthritis. No fracture or dislocation. No marrow edema. No evidence of avascular necrosis. Prominence of superior anterior right femoral head neck junction with subcortical cystic changes which can be seen associated with CAM type femoral acetabular impingement. 2. Distal right gluteus medius and minimus tendinosis at their insertions on greater trochanter. No other muscle or tendon signal abnormalities. 3. Finding is suggestive of superior anterior labral tear in right hip at approximately 1 to 2 o'clock position. Thinning of articulating cartilages in femoral head. No paralabral cyst. Dictated by: Zhen Ta M.D. on 12/13/2021 at 13:28 Approved by: Zhen Ta M.D. on 12/13/2021 at 13:40
== END ==
PROVIDERS: PCP Family Medicine; Referring Provider Student in an Organized Health Care Education/Training Program; Visit Provider Student in an Organized Health Care Education/Training Program
DX: M25.551 Pain in right hip (principal); M16.11 Unilateral primary osteoarthritis, right hip
CPT/HCPCS: 27093; 73722; 77002

== ENCOUNTER → 2022-09-06 13:19 | Outpatient (CLI) | payer OTHER, SELFPAY ==
--- NOTE | 2022-09-06 | DI.MG.S_ITS ---
BILATERAL DIGITAL SCREENING MAMMOGRAM 3D/2D WITH CAD: 09/06/2022 CLINICAL: Routine screening. Comparison is made to exams dated: 11/08/2020 mammogram, 04/17/2018 mammogram - [facility], and 08/02/2015 mammogram - [facility]. Both breasts are heterogeneously dense, which may obscure small masses (category c / 51-75% glandular tissue). Current study was also evaluated with a Computer Aided Detection (CAD) system. There are biopsy clips in the left breast. No significant masses, calcifications, or other findings are seen in either breast. There has been no significant interval change. IMPRESSION: NEGATIVE There is no mammographic evidence of malignancy. A 1 year screening mammogram is recommended. Based on the Tyrer Cuzick model (a risk assessment model) the patient's lifetime risk is 11.0% and her 10 year risk is 5.6%. According to the ACR, ACS, and NCCN guidelines, an annual breast MRI exam along with mammogram is recommended if the patient's lifetime risk is 20% or greater. This exam was interpreted at Station ID: [id number]. NOTE: For mammograms, a report in lay terms will be sent to the patient. Approximately 15% of breast malignancies will not be visualized mammographically. In the management of a palpable breast mass, a negative mammogram must not discourage biopsy of a clinically suspicious lesion. Electronically Signed By: Man haddad/maddie:09/06/2022 17:39:58 letter sent: Normal Exam ACR BI-RADS Category 1: Negative 3341F
== END ==
PROVIDERS: PCP Family Medicine; Referring Provider Family Medicine; Visit Provider Family Medicine
DX: Z12.31 Encounter for screening mammogram for malignant neoplasm of breast (principal)
CPT/HCPCS: 77063; 77067

== ENCOUNTER → 2022-09-23 12:05 | Outpatient (CLI) | payer OTHER, SELFPAY ==
--- NOTE | 2022-09-23 | DI.RAD.S_ITS ---
PROCEDURE: XR THORACIC SPINE 2V INDICATIONS: HIP AND BACK PAIN TECHNIQUE: 3 views of the thoracic spine were acquired. COMPARISON: None. FINDINGS: Bones: No fractures or dislocations. No suspicious bony lesions. 12 pairs of ribs are noted, and appear intact where visualized. Mild, mid to lower thoracic disc height loss. Soft tissues: No paravertebral stripe thickening. IMPRESSION: Mild, mid to lower thoracic disc height loss. Dictated by: Everett Zayas M.D. on 09/23/2022 at 15:50 Approved by: Everett Zayas M.D. on 09/23/2022 at 15:51
--- NOTE | 2022-09-23 | DI.RAD.S_ITS ---
PROCEDURE: XR LUMBAR SPINE 2-3V INDICATIONS: HIP AND BACK PAIN TECHNIQUE: 3 views of the lumbar spine were acquired. COMPARISON: None. FINDINGS: Bones: 5 [id number] vertebrae are present. Grade 1 anterolisthesis of L4 on L5. Moderate disc height loss at all levels. Facet arthrosis L3 through S1. Soft tissues: Overlying bowel gas pattern is normal. No suspicious soft tissue calcifications. IMPRESSION: Moderate, multilevel degenerative disc disease and lower lumbar facet arthrosis. Grade 1 anterolisthesis of L4 on L5, presumably due to facet arthrosis. Dictated by: Everett Zayas M.D. on 09/23/2022 at 15:49 Approved by: Everett Zayas M.D. on 09/23/2022 at 15:50
== END ==
PROVIDERS: PCP Orthopaedic Surgery; Referring Provider Registered Nurse; Visit Provider Registered Nurse
DX: M47.817 Spondylosis without myelopathy or radiculopathy, lumbosacral region (principal); M43.16 Spondylolisthesis, lumbar region; M51.36 Other intervertebral disc degeneration, lumbar region; M47.816 Spondylosis without myelopathy or radiculopathy, lumbar region; M25.551 Pain in right hip; M15.9 Polyosteoarthritis, unspecified; M85.851 Other specified disorders of bone density and structure, right thigh; M85.852 Other specified disorders of bone density and structure, left thigh
CPT/HCPCS: 72070; 72100

== ENCOUNTER → 2022-11-28 10:07 | Outpatient (CLI) | payer OTHER, SELFPAY ==
--- NOTE | 2022-11-28 10:09 | DI.RAD.S_ITS ---
Bone Density Report Name: PEYMAN SUMMERS Age: 67 Sex: Female Ethnicity: White Date of : 1955 Indication: osteopenia; Referring Provider: COLLEEN SANTO Study: Bone densitometry was performed. Exam Date: November 28, 2022 Accession number: [id number] Bone Density: Region BMD T-score Z-score Classification AP Spine(L1-L4) 1.016 -0.3 1.6 Normal Femoral Neck (Left) 0.640 -1.9 -0.3 Osteopenia Total Hip (Left) 0.798 -1.2 0.1 Osteopenia Femoral Neck (Right) 0.636 -1.9 -0.3 Osteopenia Total Hip (Right) 0.760 -1.5 -0.2 Osteopenia Total Hip Mean 0.779 -1.4 -0.1 Osteopenia World Health Organization criteria for BMD impression classify patients as: Normal (T-score at or above -1.0), Osteopenia (T-score between -1.0 and -2.5), or Osteoporosis (T-score at or below -2.5). 10-year Fracture Risk(1): Major Osteoporotic Fracture 9.6% Hip Fracture 1.6% Reported Risk Factors: [place] (), Neck BMD=0.636, BMI=20.7 (1) FRAX(R) Version 3.08. Fracture probability calculated for an untreated patient. Fracture probability may be lower if the patient has received treatment. Previous Exams: -- Region Exam Age BMD T-score BMD Change BMD Change Date g/cm2 vs Baseline vs Previous -- AP Spine (L1-L4) 11/28/2022 67 1.016 -0.3 -0.060 (-5.6%)# -0.060 (-5.6%)# 11/08/2020 65 1.075 0.3 Total Hip(Left) 11/28/2022 67 0.798 -1.2 -0.034 (-4.1%)# -0.034 (-4.1%)# 11/08/2020 65 0.832 -0.9 Total Hip(Right) 11/28/2022 67 0.760 -1.5 -0.040 (-5.1%)# -0.040 (-5.1%)# 11/08/2020 65 0.800 -1.2 -- *Denotes significance at 95% confidence level, LSC for AP Spine = 0.022 g/cm2, LSC for Total Hip = 0.027 g/cm2 # Denotes dissimilar scan types or analysis methods Impression: The patient has low bone mass, based on the Left Femoral Neck T-score. The patient has an estimated ten-year risk of hip fracture of 1.6% and an estimated ten-year risk of major fracture of 9.6%, based on the WHO FRAX algorithm. No significant bone loss was observed. Discussion: BONE DENSITY IS LOW AT ONE OR MORE SKELETAL SITES. This patient's lowest T-score is low at one or more skeletal sites. It meets the World Health Organization's (WHO) criteria for low bone mass (T-score between -1.0 and -2.5). The patient's 10-year risk of fracture as calculated by FRAX is less than the threshold where pharmacological therapy is recommended by the National Osteoporosis Foundation (NOF). However, all treatment decisions require clinical judgment and consideration of individual patient factors, including patient preferences, comorbidities, previous drug use, risk factors not captured in the FRAX model (e.g., frailty, falls, vitamin D deficiency, increased bone turnover, interval significant decline in bone density) and possible under or overestimation of fracture risk by FRAX. The patient should follow a healthful lifestyle (good nutrition with adequate calcium and vitamin D, and appropriate weight-bearing exercise). Follow-Up: Consider repeating this study in 2 to 3 years to reassess this patient's status, or sooner if there is some new clinical indication. Reported by: YASMEEN HUMPHRIES M.D. on 11/28/2022 10:40:00 AM.
== END ==
PROVIDERS: PCP Registered Nurse; Referring Provider Registered Nurse; Visit Provider Registered Nurse
DX: Z78.0 Asymptomatic menopausal state (principal); M85.852 Other specified disorders of bone density and structure, left thigh
CPT/HCPCS: 77080

== ENCOUNTER → 2023-09-08 11:29 | Outpatient (CLI) | payer OTHER, SELFPAY ==
--- NOTE | 2023-09-08 11:32 | DI.RAD.S_ITS ---
PROCEDURE: XR FINGER LT MIN 2V INDICATIONS: Unspecified injury of left wrist, hand and finger(s), initia TECHNIQUE: AP hand, 2 views of the 2nd finger(s) acquired. COMPARISON: None. FINDINGS: Bones: No fractures or dislocations. No suspicious bony lesions. Prominent arthritic changes including joint space narrowing, periarticular osteophytes and areas of Casie articular lucency are present within the digits. These are most severe at the 1st DIP, 2nd PIP and DIP as well as 3rd and 4th DIP joints. Osseous fusion is present at the 5th PIP joint. Mild 1st CMC degenerative narrowing with subchondral sclerosis. Soft tissues: No suspicious soft tissue calcifications. IMPRESSION: Multi digit significant joint space narrowing with subchondral lucency and periarticular osteophytes most consistent with arthritic change. Areas of subchondral lucency may represent degenerative cysts or under appropriate clinical circumstances erosions. Recommend correlation to laboratory values and clinical symptoms. The most significant arthritic changes present at the 2nd PIP joint. Dictated by: Michelle Lewis M.D. on 09/08/2023 at 17:32 Approved by: Michelle Lewis M.D. on 09/08/2023 at 17:33
== END ==
LOC: RAD 11:30
PROVIDERS: PCP Registered Nurse; Referring Provider Registered Nurse; Visit Provider Registered Nurse
DX: S69.92XA Unspecified injury of left wrist, hand and finger(s), initial encounter (principal); X58.XXXA Exposure to other specified factors, initial encounter
CPT/HCPCS: 73140

== ENCOUNTER → 2023-11-28 15:17 | Outpatient (CLI) | payer OTHER, SELFPAY ==
--- NOTE | 2023-11-28 15:20 | DI.RAD.S_ITS ---
PROCEDURE: XR CHEST 2V INDICATIONS: COUGH TECHNIQUE: 2 views of the chest were acquired. COMPARISON: [facility], CR, XR CHEST 2V, 04/08/2019, 8:57. FINDINGS: Heart, mediastinum and pulmonary vascular: Heart is normal in size and configuration. Mediastinum is unremarkable. Pulmonary vascular is normal. Lungs: A 1 cm nodular density slightly irregular borders overlies the left lung base (anterior 6th rib end) Pleural spaces: Normal-no effusions or pneumothorax. Bones and soft tissues: Normal IMPRESSION: No acute disease. 1 cm nodular density overlying the left lung base. Suggest patient return for AP and shallow oblique views- coned over the left lower lobe. If the patient is a smoker and there are risk factors for lung carcinoma, then chest CT could be considered Dictated by: Mahamed Montes De Oca M.D. on 12/01/2023 at 8:48 Approved by: Mahamed Montes De Oca M.D. on 12/01/2023 at 8:50
== END ==
PROVIDERS: PCP Registered Nurse; Referring Provider Registered Nurse; Visit Provider Registered Nurse
DX: R05.2 Subacute cough (principal)
CPT/HCPCS: 71046

== ENCOUNTER → 2023-12-04 07:33 | Outpatient (CLI) | payer OTHER, SELFPAY ==
--- NOTE | 2023-12-04 08:06 | DI.CT.S_ITS ---
PROCEDURE: CT CHEST W CON INDICATIONS: LUNG MASS TECHNIQUE: After the administration of intravenous contrast, 5 mm thick sections acquired from the pulmonary apices to the posterior costophrenic angles. 1 mm axial lung, 5 mm thick coronal and sagittal reformats and 7 mm axial MIP were acquired. For radiation dose reduction, the following was used: automated exposure control, adjustment of mA and/or kV according to patient size. COMPARISON: No prior CT chest for comparison. Comparison can be made to prior chest x-ray November 28, 2023 FINDINGS: The possible nodular density on the prior chest x-ray is most likely related to confluence of costochondral calcifications and pulmonary vessels. There is no CT evidence of pulmonary nodule in the lungs. Mild bilateral perihilar and lower lobe peribronchial thickening with mild lower lobe patchy opacities with some peripheral ground-glass opacities some of which commonly related to expiratory result and mild bibasilar subsegmental atelectasis although mild bronchitis, viral infection or other process could be considered. Trace pericardial effusion anteriorly-inferiorly measures up to 6 mm maximal depth slightly more than normal physiologic amount usually up to 3 mm. Mild degenerative changes of the thoracic spine. No pneumothorax, no pleural effusion, no pericardial effusion, no focal consolidation. Lower Neck: No enlarged lymph nodes. Thyroid: No thyroid nodules which require sonographic follow up, per consensus guidelines. Axillae: No enlarged lymph nodes. Heart: Heart size is normal. Thoracic Vessels: The aorta and pulmonary arteries demonstrate normal size. Mediastinum and Magda: No enlarged lymph nodes. Esophagus: No hiatal hernia. Upper Abdomen: Visualized upper abdomen solid organs and bowel loops appear normal. IMPRESSION: Nodular density on prior chest x-ray is most likely related to confluence of costochondral calcifications and pulmonary vessels. No pulmonary nodule in the lungs. Mild bilateral perihilar and lower lobe peribronchial thickening with mild lower lobe patchy opacities. Trace pericardial effusion. Dictated by: Jone Garnica M.D. on 12/04/2023 at 9:03 Approved by: Jone Garnica M.D. on 12/04/2023 at 9:25
== END ==
LOC: CT 07:34
PROVIDERS: PCP Registered Nurse; Referring Provider Registered Nurse; Visit Provider Registered Nurse
DX: R91.8 Other nonspecific abnormal finding of lung field (principal)
CPT/HCPCS: 71260; Q9967

== ENCOUNTER → 2023-12-04 07:35 | Outpatient (CLI) | payer OTHER, SELFPAY | PROVIDERS: PCP Registered Nurse; Referring Provider Registered Nurse; Visit Provider Registered Nurse | DX: J45.20 Mild intermittent asthma, uncomplicated (principal) | CPT/HCPCS: 71260; 94060; 94726; 94729; Q9967 ==

== ENCOUNTER → 2024-09-01 07:53 | Outpatient (CLI) | payer OTHER, SELFPAY ==
--- NOTE | 2024-09-01 07:54 | DI.MG.S_ITS ---
MM screening mammo BI: 09/01/2024. BI-RADS: 1 CLINICAL: 69-year old female for bilateral screening mammogram. Tyrer-Cuzick lifetime risk of 6.5%. No personal or first-degree family history of breast cancer. The patient had a prior left breast biopsy. PRIOR EXAMS 09/06/2022, 11/08/2020, 05/04/2018, 04/17/2018. MAMMOGRAPHY TECHNIQUE: 2D and 3D (tomosynthesis) digital mammographic views obtained, with additional images as needed for full coverage. Current study was also evaluated with a Computer Aided Detection (CAD) system. DENSITY C. The breasts are heterogeneously dense, which may obscure small masses. MAMMOGRAPHY FINDINGS Bilateral: No suspicious mass, asymmetry, microcalcification, or other abnormality seen. IMPRESSION: * No evidence of malignancy. RECOMMENDATIONS Bilateral * Annual screening mammography. OVERALL ASSESSMENT CATEGORY BI-RADS-1: Negative. The [employer] recommends annual screening mammography beginning at age 40 for women with average risk of breast cancer. ELECTRONICALLY SIGNED: Josue Warren M.D. on 09/01/2024 at 09:07:05 AM PT Interpreting Station ID: [id number]
== END ==
LOC: MAMMO 07:54
PROVIDERS: PCP Registered Nurse; Referring Provider Registered Nurse; Visit Provider Registered Nurse
DX: Z12.31 Encounter for screening mammogram for malignant neoplasm of breast (principal); R92.333 Mammographic heterogeneous density, bilateral breasts
CPT/HCPCS: 77063; 77067

== ENCOUNTER → 2024-12-01 10:10 | Outpatient (CLI) | payer OTHER, SELFPAY ==
--- NOTE | 2024-12-01 10:11 | DI.RAD.S_ITS ---
PROCEDURE: XR DEXA AXIAL SKELETON INDICATIONS: OSTEOPOROSIS COMPARISON: [facility], , XR DEXA AXIAL SKELETON, 11/28/2022, 10:32. FINDINGS: Lumbar Spine: Bone mineral density 1.015 g/cm2, T score is -0.3, -0.1%, denotes dissimilar scan types or analysis methods. Left Femoral Neck: Bone mineral density is 0.658 g/cm2, T score -1.7. Left Hip: Bone mineral density is 0.774 g/cm2, T score -1.4, -3%, denotes dissimilar scan types or analysis methods. Fracture Risk Calculation (when applicable): 10-year fracture risk of a major osteoporotic fracture 24 percent and of a hip fracture 3.9 percent. Fracture probability maybe lower the patient has received treatment. (T score greater or equal to -1.0 to: NORMAL) (T score from -1.1 to -2.4: OSTEOPENIA) (T score less than or equal to -2.5: OSTEOPOROSIS) IMPRESSION: 1. Lumbar Spine: Normal: Consider a repeat DEXA in 5 years or sooner, or if there is a new clinical indication. 2. Left hip and neck: Osteopenia: Consider a repeat DEXA in 2-3 years to reassess this patient's status, or if there is a new clinical indication. All treatment decisions require clinical judgment and consideration of individual patient factors, including patient preferences, comorbidities, previous drug use, risk factors not captured in the FRAX model (e.g., frailty, falls, vitamin D deficiency, increased bone turnover, interval significant decline in bone density ) and possible under- or over-estimation of fracture risk by FRAX. In addition, the NOF Guide recommends that FDA-approved medical therapies be considered in postmenopausal women and men age >= 50 years with a: * Hip or vertebral (clinical or morphometric) fracture * T-score of <=-2.5 at the spine or hip * Ten-year fracture probability by FRAX of >= 3% for hip fracture or >=20% for major osteoporotic fracture. Dictated by: Shonda Aggarwal RRCindy Interpreted: Rasheed Otto MD on 12/01/2024 at 15:56 Transcribed by: JESSICA on 12/01/2024 at 15:59 Approved by: Rasheed Otto M.D. on 12/03/2024 at 8:08
== END ==
LOC: RAD 10:10
PROVIDERS: PCP Registered Nurse; Referring Provider Registered Nurse; Visit Provider Registered Nurse
DX: Z13.820 Encounter for screening for osteoporosis (principal); M85.852 Other specified disorders of bone density and structure, left thigh; Z78.0 Asymptomatic menopausal state
CPT/HCPCS: 77080

== ENCOUNTER → 2025-01-24 12:35 | Outpatient (CLI) | payer OTHER, SELFPAY ==
--- NOTE | 2025-01-24 12:37 | DI.RAD.S_ITS ---
PROCEDURE: XR CHEST 2V INDICATIONS: PNEUMONIA TECHNIQUE: 2 views of the chest were acquired. COMPARISON: [facility], CR, XR CHEST 2V, 11/28/2023, 15:20. FINDINGS: Surgical changes and devices: Post fixation changes are noted in left clavicle. Lungs and pleura: Lungs are clear. No pleural effusions or pneumothorax. Mediastinum: Mediastinal contours are normal. Heart size is normal. Bones and chest wall: No suspicious bony abnormalities. Soft tissues appear unremarkable. IMPRESSION: No acute cardiopulmonary pathology. Dictated by: Zhen Ta M.D. on 01/24/2025 at 14:06 Approved by: Zhen Ta M.D. on 01/24/2025 at 14:07
== END ==
PROVIDERS: PCP Registered Nurse; Referring Provider Registered Nurse; Visit Provider Registered Nurse
DX: J18.9 Pneumonia, unspecified organism (principal)
CPT/HCPCS: 71046